=== PATIENT | male | born 1940 | race Caucasian/White ===

== ENCOUNTER 2016-11-03 19:06 | Inpatient (IN) | payer MEDICARE, OTHER ==
[2016-11-03] VITALS (101 sets, daily range): BP systolic 117; BP diastolic 69; PULSE 103; TEMP 100.6; O2SAT 87–96
[~2016-11-03] VITALS: Ht 185.4 cm; Wt 109.0 kg
[~2016-11-03 19:06] MED LIST: ACCUPRIL 1010 MG/TAB PO; ACCUPRIL20TAB PO; ACTOS 15MG TAB15 MG PO; ALLEGRA 180MG180 MG PO; FORTAMET1000 MG PO; GLUCOPHAGE1000 MG PO; LORTAB 5/500 501 TAB PO; ZOCOR 40MG40 MG PO
[2016-11-03 19:51] LABS: ADJUSTED CALCIUM 10.4 mg/dL (8.4-10.2); ALBUMIN 4.3 gm/dL (3.5-5.0); BILIRUBIN,TOTAL 1.4 mg/dL (0.0-1.0); CALCIUM 10.6 mg/dL (8.4-10.2); CREATININE, serum 2.39 mg/dL (0.66-1.25); POTASSIUM 4.7 mmol/L (3.4-5.0); TOTAL PROTEIN 7.7 gm/dL (6.4-8.2)
[2016-11-03 20:08] LABS: BASO % 0.9 % (0.0-2.0); EOS % 0.9 % (0-4.0); GRAN # 1.8 (1.4-6.5); GRAN % 86.4 % (42.2-75.2); HEMATOCRIT 41.7 % (42.0-52.0); HEMOGLOBIN 14.6 g/dl (13.5-18.0); LYMPH # 0.2 (1.2-3.4); LYMPH % 10.4 % (20.0-51.0); MEAN CELL VOLUME 94 fl (80.0-100.0); MEAN CORPUSCULAR HEMOGLOBIN 33 pg (27.0-31.0); MEAN CORPUSCULAR HGB CONC 35 g/dl (33.0-37.0); MONO % 0.9 % (1.7-9.3); RED BLOOD COUNT 4.43 M/mm3 (4.20-5.60); REDCELL DISTRIBUTION WIDTH-CV 13.2 % (11.5-14.5); WHITE BLOOD COUNT 2.1 K/mm3 (4.8-10.8)
[2016-11-03 20:09] LABS: PLATELET COUNT 125 K/mm3 (130-400)
[2016-11-03 20:27] LABS: PH 5 (5-8); SQUAMOUS EPITHELIAL 0-2 /hpf; URINE APPEARANCE Hazy; URINE BACTERIA Rare /hpf; URINE BILIRUBIN Negative (NEGATIVE); URINE BLOOD 3+ (NEGATIVE); URINE COLOR Yellow; URINE GLUCOSE 1+ (NEGATIVE); URINE KETONE Trace (NEGATIVE); URINE RBC >50 /hpf; URINE UROBILINOGEN Negative (NEGATIVE); URINE WBC >50 /hpf
[2016-11-03] MEDS ORDERED: NATURE'S BLEN5000 IU PO (21:56)
[2016-11-03] MEDS ORDERED: ONGLYZA5 MG PO (21:57)
[2016-11-03] MEDS ORDERED: GLUCOTROL 5M5 MG/TAB PO (21:58)
[2016-11-03] MEDS ORDERED: COREG12.5 MG PO (21:59)
[2016-11-03] MEDS ORDERED: NORVASC 5MG5 MG/TAB PO (22:00)
[2016-11-03] MEDS ORDERED: RAPAFLO8 MG PO (22:01)
[2016-11-03] MEDS ORDERED: PROSCAR 5MG5 MG PO (22:02)
[2016-11-04] VITALS (184 sets, daily range): BP systolic 103–120; BP diastolic 56–72; PULSE 68–88; TEMP 97.4–98.9; O2SAT 81–100
[2016-11-04 05:55] LABS: HEMATOCRIT 40.8 % (42.0-52.0); HEMOGLOBIN 15.3 g/dl (13.5-18.0); MEAN CELL VOLUME 98 fl (80.0-100.0); MEAN CORPUSCULAR HEMOGLOBIN 37 pg (27.0-31.0); MEAN CORPUSCULAR HGB CONC 38 g/dl (33.0-37.0); MEAN PLATELET VOLUME 11.2 fl (7.4-10.4); PLATELET COUNT 125 K/mm3 (130-400); RED BLOOD COUNT 4.18 M/mm3 (4.20-5.60); REDCELL DISTRIBUTION WIDTH-CV 15.9 % (11.5-14.5)
[2016-11-04 05:58] LABS: WHITE BLOOD COUNT 22.8 K/mm3 (4.8-10.8)
[2016-11-04 05:59] LABS: ADD PATHOLOGY DIFF REVIEW NO
[2016-11-04 06:05] LABS: CALCIUM 9.6 mg/dL (8.4-10.2); CREATININE, serum 3.23 mg/dL (0.66-1.25)
[2016-11-04 07:11] LABS: BAND 52 % (0-10); NEUTROPHILS 45 % (42.0-75.2); TOTAL CELLS COUNTED 100
[2016-11-04] MEDS ORDERED: COLCRYS0.6 MG PO (10:04)
[2016-11-04] MEDS ORDERED: FEMARA PO (10:04)
[2016-11-04] MEDS ORDERED: NORCO 325 MG-51 TAB PO (10:05)
[2016-11-04] MEDS ORDERED: DEPO-TESTOS100 MG/ML IM (10:07)
[2016-11-04] MEDS ORDERED: DHEA 10 MG TAB1 EACH PO (10:07)
[2016-11-04] MEDS ORDERED: MULTI VITAMINS1 TAB PO (10:08)
[2016-11-04] MEDS ORDERED: [UNRECOGNIZED DRUG - OTHER] PO (10:10)
[2016-11-04] MEDS ORDERED: VITAMIND3 5000 PO (11:41)
[2016-11-05 05:47] VITALS: BP 133/67; PULSE 87; TEMP 99.1
[2016-11-05 09:15] LABS: HEMATOCRIT 41.4 % (42.0-52.0); HEMOGLOBIN 14.2 g/dl (13.5-18.0); MEAN CELL VOLUME 97 fl (80.0-100.0); MEAN CORPUSCULAR HEMOGLOBIN 33 pg (27.0-31.0); MEAN CORPUSCULAR HGB CONC 34 g/dl (33.0-37.0); MEAN PLATELET VOLUME 11.3 fl (7.4-10.4); PLATELET COUNT 98 K/mm3 (130-400); RED BLOOD COUNT 4.26 M/mm3 (4.20-5.60); REDCELL DISTRIBUTION WIDTH-CV 14.1 % (11.5-14.5); WHITE BLOOD COUNT 13.7 K/mm3 (4.8-10.8)
[2016-11-05 09:16] VITALS: BP 123/61; PULSE 77; TEMP 98.3
[2016-11-05 13:59] VITALS: BP 122/63; PULSE 73; TEMP 98.1
[2016-11-05 16:36] LABS: CREATININE, serum 2.62 mg/dL (0.66-1.25)
[2016-11-05] MEDS ORDERED: CIPRO 500MG TA500 MG PO (17:09)
[2016-11-05] MEDS ORDERED: CLEOCIN HCL300 MG PO (17:12)
== END 2016-11-05 18:30 | disposition home or self-care (01) | DRG 862 ==
LOC: COL.ER 19:06 → IMCU 19:36 → SURG 11-04 10:20
PROVIDERS: Emergency Medicine; Internal Medicine; Nurse Practitioner Family; Urology
DX: T81.4XXA Infection following a procedure, initial encounter (principal); A41.9 Sepsis, unspecified organism; N39.0 Urinary tract infection, site not specified; N41.0 Acute prostatitis; N17.9 Acute kidney failure, unspecified; I10 Essential (primary) hypertension; E11.9 Type 2 diabetes mellitus without complications; Z85.038 Personal history of other malignant neoplasm of large intestine
CPT/HCPCS: OP; 99222; 99232-AI; 99233-AI; G0378; G8978-GP; G8979-GP; J0696; J0744; J1644; J1815; J7030

== ENCOUNTER → 2016-11-09 | Outpatient (CLI) | payer MEDICARE, OTHER ==
[~2016-11-09] MED LIST changes: +CIPRO 500MG TA500 MG PO; +CLEOCIN HCL300 MG PO; +COLCRYS0.6 MG PO; +COREG12.5 MG PO; +DEPO-TESTOS100 MG/ML IM; +DHEA 10 MG TAB1 EACH PO; +FEMARA PO; +GLUCOTROL 5M5 MG/TAB PO; +MULTI VITAMINS1 TAB PO; +NATURE'S BLEN5000 IU PO; +NORCO 325 MG-51 TAB PO; +NORVASC 5MG5 MG/TAB PO; +ONGLYZA5 MG PO; +PROSCAR 5MG5 MG PO; +RAPAFLO8 MG PO; +VITAMIND3 5000 PO; +[UNRECOGNIZED DRUG - OTHER] PO
== END ==
LOC: COL.VAS 13:15
DX: M79.661 Pain in right lower leg (principal)

== ENCOUNTER → 2020-11-12 | Outpatient (CLI) | payer MEDICARE, OTHER ==
[2020-11-12 11:47] LABS: BASO # 0.1 (0.0-0.2); BASO % 1.1 % (0.0-2.0); EOS # 0.2 (0.0-0.7); EOS % 2.3 % (0-4.0); GRAN # 5.2 (1.4-6.5); GRAN % 73.7 % (42.2-75.2); LYMPH # 1.1 (1.2-3.4); LYMPH % 15.3 % (20.0-51.0); MEAN CELL VOLUME 93 fl (80.0-100.0); MEAN CORPUSCULAR HEMOGLOBIN 33 pg (27.0-31.0); MEAN CORPUSCULAR HGB CONC 35 g/dl (33.0-37.0); MEAN PLATELET VOLUME 9.9 fl (7.4-10.4); MONO # 0.5 (0.1-0.6); MONO % 7.2 % (1.7-9.3); PLATELET COUNT 240 K/mm3 (130-400); RED BLOOD COUNT 3.36 M/mm3 (4.20-5.60); REDCELL DISTRIBUTION WIDTH-CV 14.6 % (11.5-14.5)
[2020-11-12 11:51] LABS: HEMATOCRIT 31.1 % (42.0-52.0)
== END ==
LOC: COL.LAB 11:07
DX: K62.5 Hemorrhage of anus and rectum (principal); Z86.2 Personal history of diseases of the blood and blood-forming organs and certain disorders involving the immune mechanism

== ENCOUNTER → 2020-12-16 | Outpatient (CLI) | payer MEDICARE, OTHER ==
[2020-12-16 12:07] LABS: BASO # 0.1 (0.0-0.2); BASO % 1.7 % (0.0-2.0); EOS # 0.7 (0.0-0.7); EOS % 8.4 % (0-4.0); GRAN # 5.9 (1.4-6.5); GRAN % 69.8 % (42.2-75.2); HEMOGLOBIN 12.5 g/dl (13.5-18.0); LYMPH # 1.1 (1.2-3.4); LYMPH % 12.9 % (20.0-51.0); MEAN CELL VOLUME 90 fl (80.0-100.0); MEAN CORPUSCULAR HEMOGLOBIN 32 pg (27.0-31.0); MEAN CORPUSCULAR HGB CONC 35 g/dl (33.0-37.0); MEAN PLATELET VOLUME 10.2 fl (7.4-10.4); MONO # 0.6 (0.1-0.6); MONO % 6.8 % (1.7-9.3); PLATELET COUNT 236 K/mm3 (130-400); RED BLOOD COUNT 3.95 M/mm3 (4.20-5.60); REDCELL DISTRIBUTION WIDTH-CV 14.8 % (11.5-14.5)
[2020-12-16 12:14] LABS: HEMATOCRIT 35.4 % (42.0-52.0)
== END ==
LOC: COL.LAB 11:20
PROVIDERS: Family Medicine
DX: K62.5 Hemorrhage of anus and rectum (principal); Z86.2 Personal history of diseases of the blood and blood-forming organs and certain disorders involving the immune mechanism

== ENCOUNTER 2023-11-20 19:28 | Emergency (ER) | payer MEDICARE, OTHER ==
[~2023-11-20] VITALS: Ht 182.9 cm; Wt 87.3 kg
[2023-11-20 19:36] VITALS: TEMP 98.1
[2023-11-20] MEDS ORDERED: Cephalexin 500 MG CAP PO ONE (20:00)
[2023-11-20] MEDS ORDERED: CEPHALEXIN500 M1 PO (20:11)
[2023-11-20 20:19] VITALS: BP 158/90; PULSE 72
== END 2023-11-20 20:19 | disposition home or self-care (01) ==
LOC: COL.ER 19:28
DX: L03.011 Cellulitis of right finger (principal); Z88.0 Allergy status to penicillin

== ENCOUNTER 2023-12-13 12:06 | Day surgery (SDC) | payer MEDICARE, OTHER ==
[~2023-12-13] VITALS: Ht 180.3 cm; Wt 87.1 kg
[~2023-12-13 12:06] MED LIST changes: +CEPHALEXIN500 M1 PO; +LR 1,000 ML IV SCH
[2023-12-13] MEDS ORDERED: FLOMAX 0.40.4 MG/CAP PO (13:07)
[2023-12-13] MEDS ORDERED: OZEMPIC1 MG/0.71 SQ (13:07)
[2023-12-13] MEDS ORDERED: LUPRON DEPOT45 MG (13:08)
[2023-12-13] MEDS ORDERED: JARDIANCE25 (13:09)
[2023-12-13] MEDS ORDERED: XGEVA120 MG/1.7 SQ (13:09)
[2023-12-13] MEDS ORDERED: PLAVIX 75MG TAB75 MG PO (13:10)
[2023-12-13] MEDS ORDERED: VITAMIN D 400400 IU PO (13:11)
[2023-12-13] MEDS ORDERED: CALCIUM CITRAT200 M2 (13:12)
[2023-12-13] MEDS ORDERED: TOPROL XL 25MG25 MG PO (13:13)
[2023-12-13] MEDS ORDERED: ZYTIGA500 MG PO (13:14)
[2023-12-13] MEDS ORDERED: DECADRON 4MG TAB4 MG PO (13:15)
[2023-12-13] MEDS ORDERED: Lidocaine PF 2% (20 MG/ML) 5 ML VIAL ONE (13:15)
[2023-12-13] MEDS ORDERED: Ondansetron 4 MG/2 ML VIAL ONE (13:15)
[2023-12-13] MEDS ORDERED: PREDNISONE 5MG5 MG PO (13:16)
[2023-12-13] MEDS ORDERED: TYLENOL 325MG325 MG PO (13:17)
[2023-12-13] MEDS ORDERED: Topical Skin Adhesive 1 EACH (1 ML) TOP ONE (14:50)
[2023-12-13] MEDS ORDERED: hydrALAZINE 20 MG/ML 1 ML VIAL IV PRN (15:00)
[2023-12-13] MEDS ORDERED: fentaNYL 50 MCG/ML 1 ML SYRINGE/VIAL [PACU/SDC ONLY] IV PRN (15:00)
[2023-12-13] MEDS ORDERED: Ondansetron 4 MG/2 ML VIAL IV PRN ×2 (15:00→15:30)
[2023-12-13 15:19] VITALS: BP 151/67; PULSE 83; TEMP 97.8
[2023-12-13 15:30] VITALS: BP 163/71; PULSE 84
[2023-12-13] MEDS ORDERED: Morphine 4 MG/ML VIAL IV PRN (15:30)
[2023-12-13] MEDS ORDERED: Ibuprofen 600 MG TAB PO PRN (15:30)
[2023-12-13 15:45] VITALS: BP 170/77; PULSE 84
[2023-12-13 16:00] VITALS: BP 157/71; PULSE 84
--- NOTE | 2023-12-13 16:25 | NUR ---
1519 RETURNS TO ROOM 7 PER CART FROM OR. AWAKE, ALERT. RESP UNLABORED. HOB ELEVATED 30 DEGREES. INCICION RIGHT NECK AND RIGHT UPPER CHEST INTACT WITHOUT REDNESS EDEMA OR DRAINAGE. VITAL SIGNS OBTAINED. CALL LIGHT AT SIDE. IN ROOM. 1530 DR. SHEIKH HERE TO VISIT WITH PATIENT AND 1545 HOB ELEVATED 60 DEGREES. TOLERATES PO WATER AND JUICE WITHOUT NAUSEA 1550 DISCHARGE INSTRUCTIONS REVIEWED. PATIENT VERBALIZES UNDERSTANDING. COPY PROVIDED IN DISCHARGE FOLDER 1605 SITS ON EDGE OF CART. DRESSES WITH MINIMAL ASSIST FROM 1615 AMBULATES SHORT DISTANCE TO BATHROOM WITH STANDBY ASSIST. VOIDS
[2023-12-14 05:25] VITALS: BP 142/65; PULSE 66; TEMP 98.7
== END 2023-12-13 16:25 | disposition home or self-care (01) ==
LOC: SDCO 12:06
DX: C61 Malignant neoplasm of prostate (principal); C79.9 Secondary malignant neoplasm of unspecified site; I10 Essential (primary) hypertension; G47.33 Obstructive sleep apnea (adult) (pediatric); Z79.02 Long term (current) use of antithrombotics/antiplatelets; Z85.038 Personal history of other malignant neoplasm of large intestine; Z85.828 Personal history of other malignant neoplasm of skin
CPT/HCPCS: C1788; J0690; J0694; J1644; J2405; J2704; J7120

== ENCOUNTER 2024-04-10 16:20 | Emergency (ER) | payer MEDICARE, OTHER ==
[~2024-04-10] VITALS: Ht 182.9 cm; Wt 77.3 kg
[~2024-04-10 16:20] MED LIST changes: +CALCIUM CITRAT200 M2; +DECADRON 4MG TAB4 MG PO; +FLOMAX 0.40.4 MG/CAP PO; +JARDIANCE25; -LR 1,000 ML IV SCH; +LUPRON DEPOT45 MG; +OZEMPIC1 MG/0.71 SQ; +PLAVIX 75MG TAB75 MG PO; +PREDNISONE 5MG5 MG PO; +TOPROL XL 25MG25 MG PO; +TYLENOL 325MG325 MG PO; +VITAMIN D 400400 IU PO; +XGEVA120 MG/1.7 SQ; +ZYTIGA500 MG PO
[2024-04-10 16:33] VITALS: TEMP 97.1
[2024-04-10] MEDS ORDERED: Ondansetron 4 MG/2 ML VIAL IV ONE (17:00)
[2024-04-10] MEDS ORDERED: LR 1,000 ML IV ONE (17:00)
[2024-04-10 17:21] LABS: MEAN CELL VOLUME 97 fl (80.0-100.0); MEAN CORPUSCULAR HEMOGLOBIN 35 pg (27-31); MEAN CORPUSCULAR HGB CONC 36 g/dl (33.0-37.0); MEAN PLATELET VOLUME 10.6 fl (7.4-10.4); PLATELET COUNT 132 K/mm3 (130-400); RED BLOOD COUNT 3.13 M/mm3 (4.20-5.60); REDCELL DISTRIBUTION WIDTH-CV 22.6 % (11.5-14.5)
[2024-04-10 17:26] LABS: HEMATOCRIT 30.3 % (42.0-52.0)
[2024-04-10 17:32] LABS: ALBUMIN 3.1 g/dL (3.4-4.8); BILIRUBIN,TOTAL 0.7 mg/dL (0.2-1.2); C-REACTIVE PROTEIN 0.83 mg/dL (0.00-0.50); CALCIUM 8.6 mg/dL (8.4-10.2); CREATININE, serum 1.42 mg/dL (0.72-1.25); POTASSIUM 3.7 mEq/L (3.5-4.5)
[2024-04-10] MEDS ORDERED: NS 1,000 ML IV ONE (17:45)
[2024-04-10 17:54] LABS: BAND 1 % (0-10); EOSINOPHIL 6 % (0-4); LYMPHOCYTE 18 % (20.0-51.0); NEUTROPHILS 71 % (42.0-75.2)
[2024-04-10 18:33] LABS: COLLECTION METHOD CLEAN CATCH
[2024-04-10 18:43] LABS: PH 5.5 (5.0-8.5); URINE APPEARANCE CLEAR (CLEAR/HAZY); URINE BLOOD NEGATIVE (NEGATIVE); URINE COLOR YELLOW (YELLOW); URINE GLUCOSE 3+ (NEGATIVE); URINE KETONE NEGATIVE (NEGATIVE); URINE NITRATE NEGATIVE (NEGATIVE); URINE PROTEIN(semi-quant) TRACE (NEGATIVE); URINE UROBILINOGEN 0.2 E.U/dL (0.2-1.0)
[2024-04-10 22:09] VITALS: BP 149/72; PULSE 66
== END 2024-04-10 22:09 | disposition home or self-care (01) ==
LOC: COL.ER 16:20
PROVIDERS: Family Medicine
DX: E86.0 Dehydration (principal); C61 Malignant neoplasm of prostate
CPT/HCPCS: J2405; J7030; J7120